=== PATIENT | male | born 1945 | race Caucasian/White ===

== ENCOUNTER 2018-06-23 11:32 | Inpatient (IN) | payer OTHER, MEDICARE ==
[2018-06-23 11:43] LABS: MODE ROOM AIR; MetHgb Venous 0.8 %; Sample Type Blood venous; Site VENOUS LINE; Venous COHb 0.1 %; Venous Fraction OxyHgb 50.7 %; Venous Oxygen Sat 51.2 mmHG (55.0-75.0); Venous Total Hemglobin 4.6 g/dl
[2018-06-23 11:54] LABS: ADD MAN DIFF? NO
[2018-06-23] MEDS: SOD CHLORIDE 0.9% 880 ML IV (12:02)
[2018-06-23 12:08] LABS: ABNORMAL IP MESSAGE 1; POSITIVE DIFF @See below
[2018-06-23 12:11] LABS: ADD UMIC NO; UR ASCORBIC ACID NEGATIVE (NEGATIVE); UR BILIRUBIN (Dip) NEGATIVE (NEGATIVE); UR BLOOD (Dip) NEGATIVE (NEGATIVE); UR CLARITY CLEAR (CLEAR); UR COLOR YELLOW (YELLOW); UR GLUCOSE (Dip) NEGATIVE (NEGATIVE); UR KETONES (Dip) NEGATIVE (NEGATIVE); UR LEUKOCYTE ESTERASE (Dip) NEGATIVE Leu/ul (NEGATIVE); UR NITRITE (Dip) NEGATIVE (NEGATIVE); UR SPECIFIC GRAVITY (Dip) 1.012 (1.003-1.030); UR TOTAL PROTEIN (Dip) NEGATIVE (NEGATIVE); UR UROBILINOGEN (Dip) NEGATIVE (NEGATIVE)
[2018-06-23 12:13] LABS: WHITE BLOOD COUNT 3.7 10^3/ul (4.8-10.8)
[2018-06-23 12:13] LABS: BASOPHILS % 0.3 % (0.0-2.0); EOSINOPHILS # 0.1 10^3/ul (0.0-0.5); EOSINOPHILS % 2.5 % (0.0-7.0); HEMATOCRIT 13.6 % (42.0-52.0); LYMPHOCYTES % 27.8 % (15.0-51.0); MEAN CORPUSCULAR HEMOGLOBIN 17.3 pg (29.0-33.0); MEAN CORPUSCULAR HGB CONC 26.5 g/dl (32.0-37.0); MEAN CORPUSCULAR VOLUME 65.4 fl (82.0-101.0); MONOCYTE # 0.4 10^3/ul (0.3-0.9); MONOCYTES % 9.8 % (0.0-11.0); NEUTROPHIL # 2.2 10^3/ul (1.6-7.5); NEUTROPHILS % 59.3 % (39.0-77.0); NUCLEATED RED BLOOD CELLS% 1.1 /100WBC (0.0-0.0); PLATELET COUNT 70 10^3/UL (140-415); RED BLOOD COUNT 2.08 10^6/ul (4.70-6.10)
[2018-06-23 12:16] LABS: HEMOGLOBIN 3.6 g/dl (14.0-18.0)
[2018-06-23] MEDS: SOD CHLORIDE 0.9% 250 ML IV (12:16)
[2018-06-23 12:28] LABS: ANION GAP 9 (5-13); BLOOD UREA NITROGEN 20 mg/dl (7-20); CALCIUM 7.9 mg/dl (8.4-10.2); CARBON DIOXIDE 23 mmol/L (21-31); CHLORIDE 106 mmol/L (97-110); CREATININE 0.85 mg/dl (0.61-1.24); GLUCOSE 272 mg/dl (70-220); MAGNESIUM 1.9 mg/dl (1.7-2.5); PHOSPHORUS 3.4 mg/dl (2.5-4.9); POTASSIUM 4.1 mmol/L (3.5-5.1); SODIUM 138 mmol/L (135-144)
[2018-06-23 12:40] LABS: TROPONIN-I < 0.012 ng/ml (0.000-0.120)
[2018-06-23 12:41] LABS: INR 1.23; PROTIME 15.7 Sec (11.9-14.9); PT RATIO 1.2
[2018-06-23 12:42] LABS: PARTIAL THROMBOPLASTIN TIME 30.4 Sec (23.0-35.0)
[2018-06-23] MEDS ORDERED: ONDANSETRON 4 MG INJ IV ×2 (14:30→15:00)
[2018-06-23] MEDS ORDERED: ACETAMINOPHEN 325 MG TAB PO ×2 (14:30→15:00)
[2018-06-23] MEDS ORDERED: HYDROCODONE/APAP (5/325) TAB PO (15:00)
[2018-06-23] MEDS ORDERED: MAGNESIUM HYDROXIDE 30ML CUP PO (15:00)
[2018-06-23] MEDS ORDERED: NACL 0.9% 3 ML SYG IV (15:00)
[2018-06-23 15:08] LABS: IRON 14 ug/dl (35-150)
[2018-06-23 15:09] LABS: CREATINE KINASE 74 IU/L (23-200)
[2018-06-23 15:17] LABS: % IRON SATURATION 3 % SAT (22-52); TOTAL IRON BINDING CAPACITY 421 ug/dl (241-421)
[2018-06-23 15:20] LABS: CK-MB 1.15 ng/ml (0.0-2.4)
[2018-06-23 15:46] LABS: FERRITIN 4.6 ng/ml (11.1-264.0)
[2018-06-23] MEDS ORDERED: DEXTROSE 50% 50 ML SYRINGE IV ×2 (16:30)
[2018-06-23] MEDS ORDERED: GLUCAGON 1 MG INJ IM (16:30)
[2018-06-23] MEDS ORDERED: GLUCOSE GEL 15 GRAM TUBE PO ×2 (16:30)
[2018-06-23] MEDS ORDERED: GLUCOSE GEL 15 GRAM TUBE BUCCAL (16:30)
[2018-06-23] MEDS: INSULIN ASPART [NOVOLOG] 3 ML PEN SC ×3 (18:00→21:45)
[2018-06-23] MEDS: FOLIC ACID 1 MG TAB PO (20:30)
[2018-06-23] MEDS: SOD FERRIC GLUC COMPLX 125 MG in SOD CHLORIDE 0.9% 100 ML IVPB (20:32)
[2018-06-23] MEDS: GABAPENTIN 100 MG CAP PO (21:42)
[2018-06-23 22:44] LABS: CREATINE KINASE 56 IU/L (23-200)
[2018-06-23 22:57] LABS: CK INDEX 1.8; TROPONIN-I < 0.012 ng/ml (0.000-0.120)
[2018-06-23 22:59] LABS: BILIRUBIN,INDIRECT 1.1 mg/dl (0-1.1); BILIRUBIN,TOTAL 1.1 mg/dl (0.2-1.3)
[2018-06-23 22:59] LABS: LACTATE DEHYDROGENASE 418 IU/L (313-618)
[2018-06-23 23:52] LABS: FOLATE 9.4 ng/ml (2.8-20.0)
[2018-06-24] MEDS: ACCU-CHEK XX (02:00)
[2018-06-24 05:09] LABS: ADD MAN DIFF? NO
[2018-06-24 05:18] LABS: WHITE BLOOD COUNT 3.1 10^3/ul (4.8-10.8)
[2018-06-24 05:18] LABS: ABNORMAL IP MESSAGE 1; BASOPHILS % 0.6 % (0.0-2.0); EOSINOPHILS # 0.1 10^3/ul (0.0-0.5); EOSINOPHILS % 3.2 % (0.0-7.0); HEMATOCRIT 20.9 % (42.0-52.0); LYMPHOCYTES # 0.9 10^3/ul (0.8-2.9); LYMPHOCYTES % 29.9 % (15.0-51.0); MEAN CORPUSCULAR HEMOGLOBIN 21.9 pg (29.0-33.0); MEAN CORPUSCULAR HGB CONC 30.1 g/dl (32.0-37.0); MEAN CORPUSCULAR VOLUME 72.6 fl (82.0-101.0); MONOCYTE # 0.3 10^3/ul (0.3-0.9); NEUTROPHIL # 1.8 10^3/ul (1.6-7.5); NUCLEATED RED BLOOD CELLS% 0.6 /100WBC (0.0-0.0); POSITIVE DIFF @See below; RED BLOOD COUNT 2.88 10^6/ul (4.70-6.10); RED CELL DISTRIBUTION WIDTH 22.5 % (11.5-14.5)
[2018-06-24 05:33] LABS: ALANINE AMINOTRANSFERASE 46 IU/L (13-69); ALBUMIN 2.9 g/dl (3.3-4.9); ALBUMIN/GLOBULIN RATIO 1.11; ALKALINE PHOSPHATASE 102 IU/L (42-121); ANION GAP 7 (5-13); ASPARTATE AMINO TRANSFERASE 47 IU/L (15-46); BLOOD UREA NITROGEN 16 mg/dl (7-20); CALCIUM 7.9 mg/dl (8.4-10.2); CARBON DIOXIDE 24 mmol/L (21-31); CHLORIDE 112 mmol/L (97-110); CHOL/HDL RATIO 3.2 RATIO; CHOLESTEROL 69 mg/dl (100-200); CREATININE 0.89 mg/dl (0.61-1.24); GLUCOSE 130 mg/dl (70-220); HDL CHOLESTEROL 21 mg/dl (31-75); LDL CHOLESTEROL,CALCULATED 28 mg/dl; PHOSPHORUS 3.5 mg/dl (2.5-4.9); POTASSIUM 4.3 mmol/L (3.5-5.1); SODIUM 143 mmol/L (135-144); TOTAL PROTEIN 5.5 g/dl (6.1-8.1); TRIGLYCERIDES 101 mg/dl (0-149)
[2018-06-24 05:50] LABS: HEMOGLOBIN 6.3 g/dl (14.0-18.0)
[2018-06-24 05:51] LABS: PLATELET COUNT 65 10^3/UL (140-415)
[2018-06-24] MEDS: PANTOPRAZOLE (EC) 40 MG TAB PO (07:49)
[2018-06-24] MEDS: INSULIN GLARGINE [LANTus] (100 UNITS/ML) SYG SC (07:56)
[2018-06-24] MEDS: INSULIN ASPART [NOVOLOG] 3 ML PEN SC ×7 (07:56→20:32)
[2018-06-24] MEDS: GABAPENTIN 100 MG CAP PO ×3 (08:45→20:32)
[2018-06-24] MEDS: GEMFIBROZIL 600 MG TAB PO (08:45)
[2018-06-24] MEDS: LINAGLIPTIN 5 MG TABLET PO (08:45)
[2018-06-24] MEDS: LISINOPRIL 20 MG TAB PO (08:46)
[2018-06-24] MEDS: SOD CHLORIDE 0.9% 250 ML IV* (14:29)
[2018-06-24] MEDS: BISACODYL (EC) 5 MG TAB PO (16:15)
[2018-06-24] MEDS: SOD FERRIC GLUC COMPLX 125 MG in SOD CHLORIDE 0.9% 100 ML IVPB (16:18)
[2018-06-24] MEDS: MAGNESIUM CITRATE 300 ML BTL PO (17:57)
[2018-06-24] MEDS: POLYETHYLENE GLYCOL 3350 119 GM POWDER PO (18:50)
[2018-06-25] MEDS: ACCU-CHEK XX (01:04)
[2018-06-25] MEDS: POLYETHYLENE GLYCOL 3350 119 GM POWDER PO (05:39)
[2018-06-25 06:12] LABS: ADD MAN DIFF? NO
[2018-06-25 06:23] LABS: WHITE BLOOD COUNT 3.3 10^3/ul (4.8-10.8)
[2018-06-25 06:23] LABS: ABNORMAL IP MESSAGE 1; BASOPHILS % 1.2 % (0.0-2.0); EOSINOPHILS # 0.2 10^3/ul (0.0-0.5); EOSINOPHILS % 4.8 % (0.0-7.0); HEMOGLOBIN 7.8 g/dl (14.0-18.0); LYMPHOCYTES # 0.8 10^3/ul (0.8-2.9); LYMPHOCYTES % 22.9 % (15.0-51.0); MEAN CORPUSCULAR HEMOGLOBIN 23.4 pg (29.0-33.0); MEAN CORPUSCULAR HGB CONC 31.2 g/dl (32.0-37.0); MEAN CORPUSCULAR VOLUME 75.1 fl (82.0-101.0); MONOCYTE # 0.3 10^3/ul (0.3-0.9); MONOCYTES % 8.4 % (0.0-11.0); NEUTROPHILS % 61.5 % (39.0-77.0); NUCLEATED RED BLOOD CELLS # 0.1 10^3/ul (0.0-0.0); NUCLEATED RED BLOOD CELLS% 1.5 /100WBC (0.0-0.0); PLATELET COUNT 60 10^3/UL (140-415); POSITIVE DIFF @See below; RED BLOOD COUNT 3.33 10^6/ul (4.70-6.10); RED CELL DISTRIBUTION WIDTH 23.4 % (11.5-14.5)
[2018-06-25] MEDS: PANTOPRAZOLE (EC) 40 MG TAB PO (06:26)
[2018-06-25 06:34] LABS: INR 1.21; PROTIME 15.5 Sec (11.9-14.9); PT RATIO 1.2
[2018-06-25 07:00] LABS: ANION GAP 5 (5-13); BLOOD UREA NITROGEN 14 mg/dl (7-20); CALCIUM 7.9 mg/dl (8.4-10.2); CARBON DIOXIDE 22 mmol/L (21-31); CHLORIDE 113 mmol/L (97-110); GLUCOSE 157 mg/dl (70-220); POTASSIUM 4.5 mmol/L (3.5-5.1); SODIUM 140 mmol/L (135-144)
[2018-06-25 07:16] LABS: HEPATITIS B SURFACE ANTIGEN NEGATIVE (NEGATIVE)
[2018-06-25 07:34] LABS: HEPATITIS B CORE ANTIBODY REACTIVE (NEGATIVE); HEPATITIS C VIRAL ANTIBODY NEGATIVE (NEGATIVE)
[2018-06-25 07:35] LABS: HEPATITIS B SURFACE ANTIBODY POSITIVE (NEGATIVE)
[2018-06-25] MEDS: INSULIN ASPART [NOVOLOG] 3 ML PEN SC ×7 (07:55→20:12)
[2018-06-25] MEDS: INSULIN GLARGINE [LANTus] (100 UNITS/ML) SYG SC (08:16)
[2018-06-25] MEDS: LINAGLIPTIN 5 MG TABLET PO (08:16)
[2018-06-25] MEDS: LISINOPRIL 20 MG TAB PO (08:16)
[2018-06-25] MEDS: GEMFIBROZIL 600 MG TAB PO (08:17)
[2018-06-25] MEDS: GABAPENTIN 100 MG CAP PO ×3 (08:17→20:10)
[2018-06-25] MEDS: BISACODYL (EC) 5 MG TAB PO (08:19)
[2018-06-25 13:57] LABS: HAPTOGLOBIN 45 mg/dL (43-212)
[2018-06-25] MEDS: IOHEXOL 300MG/ML 150 ML BTL ×2 (15:07→20:31)
[2018-06-25] MEDS: SOD CHLORIDE 0.9% 100 ML ×2 (15:07→20:31)
[2018-06-25] MEDS: FENTAnyl 50 MCG/ML VIAL (15:51)
[2018-06-25] MEDS: PROPOFOL 20 ML (15:51)
[2018-06-25] MEDS: SOD FERRIC GLUC COMPLX 125 MG in SOD CHLORIDE 0.9% 100 ML IVPB (17:51)
[2018-06-25 20:59] LABS: IMMEDIATE SPIN CROSSMATCH 1 6
[2018-06-26] MEDS: ACCU-CHEK XX (02:00)
[2018-06-26 06:09] LABS: ADD MAN DIFF? NO
[2018-06-26 06:20] LABS: ABNORMAL IP MESSAGE 1; BASOPHILS % 0.8 % (0.0-2.0); EOSINOPHILS # 0.1 10^3/ul (0.0-0.5); EOSINOPHILS % 3.4 % (0.0-7.0); HEMATOCRIT 27.4 % (42.0-52.0); HEMOGLOBIN 8.6 g/dl (14.0-18.0); LYMPHOCYTES # 0.9 10^3/ul (0.8-2.9); LYMPHOCYTES % 24.2 % (15.0-51.0); MEAN CORPUSCULAR HEMOGLOBIN 24.2 pg (29.0-33.0); MEAN CORPUSCULAR HGB CONC 31.4 g/dl (32.0-37.0); MEAN CORPUSCULAR VOLUME 77.2 fl (82.0-101.0); MONOCYTE # 0.3 10^3/ul (0.3-0.9); MONOCYTES % 8.7 % (0.0-11.0); NEUTROPHIL # 2.2 10^3/ul (1.6-7.5); NEUTROPHILS % 62.6 % (39.0-77.0); NUCLEATED RED BLOOD CELLS% 0.6 /100WBC (0.0-0.0); POSITIVE DIFF @See below; RED BLOOD COUNT 3.55 10^6/ul (4.70-6.10); RED CELL DISTRIBUTION WIDTH 24.3 % (11.5-14.5)
[2018-06-26 06:20] LABS: WHITE BLOOD COUNT 3.6 10^3/ul (4.8-10.8)
[2018-06-26 06:40] LABS: PLATELET COUNT 51 10^3/UL (140-415)
[2018-06-26 07:05] LABS: ALANINE AMINOTRANSFERASE 90 IU/L (13-69); ALBUMIN 2.8 g/dl (3.3-4.9); ALKALINE PHOSPHATASE 112 IU/L (42-121); ANION GAP 5 (5-13); ASPARTATE AMINO TRANSFERASE 137 IU/L (15-46); BILIRUBIN,INDIRECT 1.5 mg/dl (0-1.1); BILIRUBIN,TOTAL 1.5 mg/dl (0.2-1.3); BLOOD UREA NITROGEN 15 mg/dl (7-20); CALCIUM 7.9 mg/dl (8.4-10.2); CARBON DIOXIDE 20 mmol/L (21-31); CHLORIDE 114 mmol/L (97-110); CREATININE 0.87 mg/dl (0.61-1.24); GLUCOSE 150 mg/dl (70-220); POTASSIUM 4.7 mmol/L (3.5-5.1); SODIUM 139 mmol/L (135-144); TOTAL PROTEIN 5.9 g/dl (6.1-8.1)
[2018-06-26] MEDS: SOD CHLORIDE 0.9% 250 ML IV* (07:32)
[2018-06-26] MEDS: INSULIN ASPART [NOVOLOG] 3 ML PEN SC ×7 (07:55→21:00)
[2018-06-26] MEDS: LINAGLIPTIN 5 MG TABLET PO (07:57)
[2018-06-26] MEDS: GABAPENTIN 100 MG CAP PO ×3 (07:57→21:00)
[2018-06-26] MEDS: GEMFIBROZIL 600 MG TAB PO (07:57)
[2018-06-26] MEDS: LISINOPRIL 20 MG TAB PO (07:58)
[2018-06-26] MEDS: PANTOPRAZOLE (EC) 40 MG TAB PO (07:58)
[2018-06-26] MEDS: INSULIN GLARGINE [LANTus] (100 UNITS/ML) SYG SC (07:59)
[2018-06-26 14:38] LABS: ALPHA FETOPROTEIN 6.43 IU/L (0.00-7.21)
[2018-06-26 14:40] LABS: CANCER ANTIGEN 19-9 < 1.4 U/ml (0.0-37.0)
[2018-06-26] MEDS: SOD FERRIC GLUC COMPLX 125 MG in SOD CHLORIDE 0.9% 100 ML IVPB (16:55)
[2018-06-27] MEDS: ACCU-CHEK XX (02:00)
[2018-06-27] MEDS: INSULIN ASPART [NOVOLOG] 3 ML PEN SC ×4 (07:55→11:44)
[2018-06-27] MEDS: PANTOPRAZOLE (EC) 40 MG TAB PO (09:36)
[2018-06-27] MEDS: LINAGLIPTIN 5 MG TABLET PO (09:39)
[2018-06-27] MEDS: GABAPENTIN 100 MG CAP PO ×2 (09:39→14:11)
[2018-06-27] MEDS: GEMFIBROZIL 600 MG TAB PO (09:39)
[2018-06-27] MEDS: INSULIN GLARGINE [LANTus] (100 UNITS/ML) SYG SC (09:42)
[2018-06-27] MEDS: LISINOPRIL 20 MG TAB PO (09:46)
== END 2018-06-27 16:50 | disposition home or self-care (01) | DRG 812 ==
LOC: E/R 11:32 → TEL 14:12
PROC: 30233N1 Transfusion of Nonautologous Red Blood Cells into Peripheral Vein, Percutaneous Approach (ICD-10-PCS; principal; 2018-06-25 15:26)
PROC: 0DB68ZX Excision of Stomach, Via Natural or Artificial Opening Endoscopic, Diagnostic (ICD-10-PCS; 2018-06-25 15:26)
PROC: 0DJD8ZZ Inspection of Lower Intestinal Tract, Via Natural or Artificial Opening Endoscopic (ICD-10-PCS; 2018-06-25 15:26)
DX: D50.9 Iron deficiency anemia, unspecified (principal); D61.818 Other pancytopenia; E11.65 Type 2 diabetes mellitus with hyperglycemia; E78.5 Hyperlipidemia, unspecified; I10 Essential (primary) hypertension; E11.40 Type 2 diabetes mellitus with diabetic neuropathy, unspecified; K29.70 Gastritis, unspecified, without bleeding; Z79.4 Long term (current) use of insulin
CPT/HCPCS: 36415; 36430; 71260; 74177; 74183; 76700; 80048; 80053; 80061; 81003; 82105; 82247; 82248; 82550; 82553; 82607; 82728; 82746; 82803; 82962; 83010; 83036; 83540; 83605; 83615; 83735; 84100; 84484; 85025; 85610; 85730; 86301; 86644; 86704; 86706; 86803; 86850; 86900; 86901; 86920; 87340; 88305; 88312; 93005; 93306; 99285-25